=== PATIENT | male | born 1990 | race Caucasian/White ===

== ENCOUNTER 2017-03-16 10:27 | Emergency (ER) | payer BC ==
[~2017-03-16] VITALS: Ht 185.4 cm; Wt 129.0 kg
[~2017-03-16 10:27] MED LIST: CIPROFLOXACN500 MG PO; NO HOME MEDS
[2017-03-16] MEDS ORDERED: PREDNISONE50 MG PO ×2 (10:47→11:14)
[2017-03-16 11:00] VITALS: BP 146/80
== END 2017-03-16 11:21 | disposition home or self-care (01) | DRG 916 ==
LOC: ED 10:27
DX: T78.40XA Allergy, unspecified, initial encounter (principal); X58.XXXA Exposure to other specified factors, initial encounter

== ENCOUNTER 2022-05-10 07:46 | Emergency (ER) | payer BC ==
[~2022-05-10] VITALS: Ht 185.4 cm; Wt 152.0 kg
[2022-05-10] VITALS (9 sets, daily range): BP systolic 119–169; BP diastolic 49–86
[~2022-05-10 07:46] MED LIST changes: +PREDNISONE50 MG PO
[2022-05-10] MEDS ORDERED: ONDANSETRON4 MG PO ×3 (08:23→10:07)
== END 2022-05-10 10:15 | disposition home or self-care (01) | DRG 392 ==
LOC: ED 07:46
DX: R11.2 Nausea with vomiting, unspecified (principal)